=== PATIENT | female | born 1965 | race Caucasian/White ===

== ENCOUNTER 2020-12-24 22:23 | Emergency (ER) | payer BC ==
--- NOTE | 2020-12-24 22:47 | EDM.PDOC ---
ED HPI GENERAL MEDICAL PROBLEM - General Chief Complaint: Lower Extremity Injury/Pain Stated Complaint: LT LEG BRUISE, SWELLING Time Seen by Provider: 12/24/20 22:33 - History of Present Illness INITIAL COMMENTS - FREE TEXT/NARRATIVE: 55-year-old female no significant past medical history presents with a bruise on the left calf that she and family are concerned he may represent a blood clot. No remembered trauma some mild redness initially patient went bowling with the family and after that noted a darkening color some soreness at that site but no other symptoms. Fluctuating temperature sensation and night sweats for years. Patient had blood work related to her surgery 2 months ago that she believes was unremarkable.. Left Lower Leg Pain Score (Numeric/FACES): 2 - Related Data Home Meds: Home Meds . [No Known Home Meds] 12/24/20 [History] Social & Family History - Recreational Drug Use Recreational Drug Use: No Review of Systems - Review of Systems Review Of Systems: See Below Constitutional: Reports: Other (Per HPI) Respiratory: Reports: No Symptoms Cardiovascular: Reports: No Symptoms Skin: Reports: Other (Per HPI) ED EXAM, GENERAL - Physical Exam Exam: See Below Free Text/Narrative:: General Appearance: No acute distress, appears comfortable Skin: 2 cm diameter contusion just distal to the left knee in the region of the lateral hamstring insertion some tenderness at that specific site but no other swelling tenderness or deformity no crepitus HEENT: Normocephalic/atraumatic, sclera anicteric, mucous membranes moist Neck: Normal range of motion Musculoskeletal: No edema or tenderness Neurologic: Awake, alert, no obvious deficits, moving all extremities Psychiatric: Appropriate, cooperative Course - Vital Signs Last Recorded V/S: Last Vital Signs Temp 97.8 F 12/24/20 22:33 Pulse 78 12/24/20 22:33 Resp 16 12/24/20 22:33 BP 114/81 12/24/20 22:33 Pulse Ox 98 12/24/20 22:33 Departure - Departure Time of Disposition: 22:46 Disposition: Home, Self-Care 01 Condition: Good Clinical Impression: Contusion - Discharge Information *PRESCRIPTION DRUG MONITORING PROGRAM REVIEWED*: Not Applicable *COPY OF PRESCRIPTION DRUG MONITORING REPORT IN PATIENT ALYCE: Not Applicable Instructions: Contusion, [id number] Forms: ED Department Discharge Additional Instructions: Your bruise is not consistent with a blood clot in your leg. I would advise ice therapy and gentle compression and it should heal is normal. The following information is given to patients seen in the emergency department who are being discharged to home. This information is to outline your options for follow-up care. We provide all patients seen in our emergency department with a follow-up referral. The need for follow-up, as well as the timing and circumstances, are variable depending upon the specifics of your emergency department visit. If you don't have a primary care physician on staff, we will provide you with a referral. We always advise you to contact your personal physician following an emergency department visit to inform them of the circumstance of the visit and for follow-up with them and/or the need for any referrals to a consulting specialist. The emergency department will also refer you to a specialist when appropriate. This referral assures that you have the opportunity for follow-up care with a specialist. All of these measure are taken in an effort to provide you with optimal care, which includes your follow-up. Under all circumstances we always encourage you to contact your private physician who remains a resource for coordinating your care. When calling for follow-up care, please make the office aware that this follow-up is from your recent emergency room visit. If for any reason you are refused follow-up, please contact the [facility] Emergency Department at and asked to speak to the emergency department charge nurse. Sepsis Event Note (ED) - Evaluation Sepsis Screening Result: No Definite Risk - Focused Exam Vital Signs: Vital Signs Temp Pulse Resp BP Pulse Ox 12/24/20 22:33 97.8 F 78 16 114/81 98 - Assessment/Plan Assessment:: 55-year-old female presenting with a contusion to the left calf. Examination is not consistent with a blood clot. No signs of cellulitis or other infective process. Patient has blood work 2 months ago and given this I have a low concern for leukemia or lymphoma there is no other history of easy bruising family and patient report this is a unique incident.
== END 2020-12-24 22:55 | disposition home or self-care (01) ==
LOC: MW.ED 22:23
DX: S80.02XA Contusion of left knee, initial encounter (principal); X58.XXXA Exposure to other specified factors, initial encounter
CPT/HCPCS: 99282